=== PATIENT | female | born 1965 | race Caucasian/White ===

== ENCOUNTER 2018-05-08 10:45 | Outpatient (CLI) | payer BC ==
[~2018-05-08] VITALS: Ht 167.6 cm; Wt 95.3 kg
[~2018-05-08 10:45] MED LIST: BENA20TA72; FENO135C; SRTR100T
[2018-05-08] MEDS ORDERED: SERT25TA5 PO (10:58)
[2018-05-08] MEDS ORDERED: FENO160T12 PO (10:58)
[2018-05-08] MEDS ORDERED: HYDR25TA4 PO (10:58)
[2018-05-08] MEDS ORDERED: SERT100T8 PO (10:58)
[2018-05-08] MEDS ORDERED: OMEP20CA12 PO (10:58)
[2018-05-08] MEDS ORDERED: BENA20TA7 PO (10:58)
[2018-05-08] MEDS ORDERED: BUSP5TAB59 PO (10:58)
[2018-05-08] MEDS ORDERED: METF-397 PO (10:58)
== END 2018-05-08 11:01 | disposition home or self-care (01) ==
LOC: PREOP 10:45
PROVIDERS: ATTEND Surgery
DX: Z01.818 Encounter for other preprocedural examination (principal)

== ENCOUNTER 2018-05-11 10:58 | Day surgery (SDC) | payer BC ==
[~2018-05-11] VITALS: Ht 167.6 cm; Wt 95.3 kg
[~2018-05-11 10:58] MED LIST changes: +BENA20TA7 PO; +BUSP5TAB59 PO; +FENO160T12 PO; +HYDR25TA4 PO; +METF-397 PO; +OMEP20CA12 PO; +SERT100T8 PO; +SERT25TA5 PO
[2018-05-11] MEDS ORDERED: LACTATED RINGERS 1,000 ML IV ONE (11:11)
[2018-05-11] MEDS ORDERED: LACTATED RINGERS 1,000 ML IV STA (11:36)
[2018-05-11 11:41] VITALS: BP 121/66
[2018-05-11] MEDS ORDERED: HURRICAINE EXT TUBE (BENZOCAINE) XX PRN (11:45)
[2018-05-11] MEDS ORDERED: PROPOFOL INJECTION 50 ML IV ONE (12:30)
[2018-05-11] MEDS ORDERED: LIDOCAINE PF 2% 2 ML (XYLOCAINE) VIAL ONE (12:32)
--- NOTE | 2018-05-11 12:55 | Progress Note-Pre Operative ---
Pre-Operative Progress Note H&P Reviewed The H&P was reviewed, patient examined and no changes noted. Time Seen by Provider: 12:51 Date H&P Reviewed: May 11, 2018 Time H&P Reviewed: 12:52 Pre-Operative Diagnosis: Gastritis, Screening colonoscopy PAULO CEE DO May 11, 2018 12:55
[2018-05-11] MEDS ORDERED: proPOfol 200 MG/20 ML (DIPRIVAN) VIAL IV ONE (13:29)
--- NOTE | 2018-05-11 13:41 | Progress Note-Post Operative ---
Post-Operative Progess Note Surgeon (s)/Ship Pilot Dispatcher (s) Surgeon PAULO CEE DO Ship Pilot Dispatcher: RAMSEY SaxenaII Pre-Operative Diagnosis Gastritis, Screening colonoscopy Post-Operative Diagnosis Gastritis Cecal Polyp Diverticula Internal Hemorrhoids ??Proctitis Procedure & Operative Findings Date of Procedure 05/11/18 Procedure Performed/Findings EGD with bx Colon with snare Colon with bx Anesthesia Type IV Sedation by VERTICAL LATHE OPERATOR Estimated Blood Loss Estimated blood loss (mL): scant Specimens/Packing Specimens Removed Duodenal bx Antral bx Cecal polyp Rectal bx PAULO CEE DO May 11, 2018 13:40
--- NOTE | 2018-05-11 13:42 | Endoscopy Discharge Instruct ---
Endo Procedure/Findings Findings 1.: Gastritis 2.: Polyp 3.: Diverticulosis 4.: Internal Hemorrhoids Discharge Instructions - Activity: You might feel a little sleepy until tomorrow. This is due to the medicine you received to relax you. Until tomorrow, you should: NOT drive a car, operate machinery or power tools. NOT drink any alcoholic beverages. NOT make any important decisions or sign importortant papers. Do not return to work until tomorrow, unless otherwise instructed. Resume previous activities tomorrow. Diet: Start by taking liquids. If you tolerate liquids, advance to solid food. Make an appointment for one week. Notify Physician - If you experience excessive bleeding, unusual abdominal pain, fever, or chest pain, contact your doctor immediately. Follow-Up: - I have received and understand the above instructions and will call my doctor if I have any further questions. Patient Signature Date Nurse Signature Other (Relationship) PAULO CEE DO May 11, 2018 13:42
[2018-05-11 13:55] VITALS: BP 120/70
--- OUTSIDE RECORDS SUMMARY | 2018-05-11 14:05 | XMS REPORT ---
Author Author MARCUS MARA Organization [facility] Address [address] [place] [address] Care Team Providers Care Wire Machine Cutter Name Role Phone VELAZQUEZSUMAN ArceELE Unavailable PROBLEMS Type Condition ICD9-CM Code NCB09-ON Code Onset Dates Condition Status SNOMED Code Problem Other obesity due to excess calories E66.09 Active 856023831 Problem Pre-diabetes R73.03 Active 704203961 Problem Body mass index (BMI) of 34.0-34.9 in adult Z68.34 Active 129551061 Problem Mixed hyperlipidemia E78.2 Active 021848335 Problem Recurrent major depressive disorder, in full remission F33.42 Active 73126850 Problem Major depressive disorder, recurrent, moderate F33.1 Active 14732311 Problem Muscle spasms of both lower extremities M62.838 Active 28409739 Problem OAB (overactive bladder) N32.81 Active 368195907 Problem Essential hypertension I10 Active 20935142 Problem GERD without esophagitis K21.9 Active 327414788 ALLERGIES No Information ENCOUNTERS Encounter Location Date Diagnosis [facility] [id number] [place] [address] 73516- 6679 17 Apr, 2018 Pelvic pain R10.2 and Change in consistency of stool R19.5 [facility] [id number] [place] [address] 47382 -1180 Apr, Polyuria R35.8 ; Vaginal pain R10.2 ; Rash and nonspecific skin eruption R21 ; Pelvic pain R10.2 and Acute cystitis with hematuria N30.01 [facility] [address] [place] [address] 54475- 3136 Jan, Pre-diabetes R73.03 and Mixed hyperlipidemia E78.2 [facility] [id number] [place] [address] 63729- 9725 Jan, [facility] [id number] [place] [address] 80599- 0402 19 Jan, 2018 Recurrent major depressive disorder, in full remission F33.42 [facility] [id number] [place] [address] 52427- 4098 15 Jan, 2018 Essential hypertension I10 ; Mixed hyperlipidemia E78.2 ; GERD without esophagitis K21.9 ; OAB (overactive bladder) N32.81 ; Body mass index (BMI) of 34.0-34.9 in adult Z68.34 ; Pre-diabetes R73.03 and Recurrent major depressive disorder, in full remission F33.42 [facility] [id number] [place] [address] 96317- 7041 13 Nov, 2017 [place] [id number] [place] [address] 69265- 1012 Nov, Essential hypertension I10 [place] [id number] [place] [address] 24270- 9079 Nov, Essential hypertension I10 [facility] [id number] [place] [address] 40176- 4451 Oct, [place] [id number] [place] [address] 99126- 1473 Oct, Muscle spasms of both lower extremities M62.838 [place] [id number] [place] [address] 86991- 2600 Oct, Essential hypertension I10 ; Mixed hyperlipidemia E78.2 ; Pre-diabetes R73.03 and Other obesity due to excess calories E66.09 [facility] [id number] [place] [address] 67755- 7216 Oct, Mixed hyperlipidemia E78.2 [facility] [id number] [place] [address] 87889- 4695 Oct, Major depressive disorder, recurrent, moderate F33.1 [facility] [address] 23610- 5711 Oct, Essential hypertension I10 ; Mixed hyperlipidemia E78.2 ; Recurrent major depressive disorder, in full remission F33.42 ; GERD without esophagitis K21.9 ; OAB (overactive bladder) N32.81 ; Muscle spasms of both lower extremities M62.838 ; Acute suppurative otitis media of right ear without spontaneous rupture of tympanic membrane, recurrence not specified H66.001 ; Pre -diabetes R73.03 ; Other obesity due to excess calories E66.09 and Body mass index (BMI) of 34.0-34.9 in adult Z68.34 [facility] [address] [facility] [id number] [place] [address] Sep, IMMUNIZATIONS No Known Immunizations SOCIAL HISTORY Never Assessed REASON FOR VISIT New Refill Request PLAN OF CARE VITAL SIGNS MEDICATIONS Medication Instructions Dosage Frequency Start Date End Date Duration Status MetFORMIN HCl ER 500 mg Orally Once a day 1 tablet with evening meal 24h Oct, 30 days Active Fenofibrate 160 MG Orally Once a day 1 tablet with food 24h 30 days Active RESULTS No Results PROCEDURES No Known procedures INSTRUCTIONS MEDICATIONS ADMINISTERED No Known Medications MEDICAL (GENERAL) HISTORY Type Description Date Medical History Hyperlipidemia Medical History Hypertension Medical History Depression Medical History Anxiety Medical History Acid Reflux Medical History Recurrent major depressive disorder, in full remission Surgical History Total Hysterectomy 2008
--- OUTSIDE RECORDS SUMMARY | 2018-05-11 14:05 | XMS REPORT ---
Author Author MARCUS MARA Organization [facility] Address [address] [place] [address] Care Team Providers Care Oil Heaterman Name Role Phone VELAZQUEZSUMAN ArceELE Unavailable PROBLEMS Type Condition ICD9-CM Code [id number] Code Onset Dates Condition Status SNOMED Code Problem Other obesity due to excess calories E66.09 Active 828097226 Problem Pre-diabetes R73.03 Active 236313385 Problem Body mass index (BMI) of 34.0-34.9 in adult Z68.34 Active 582482058 Problem Mixed hyperlipidemia E78.2 Active 968799216 Problem Recurrent major depressive disorder, in full remission F33.42 Active 54969834 Problem Major depressive disorder, recurrent, moderate F33.1 Active 37010035 Problem Muscle spasms of both lower extremities M62.838 Active 48466327 Problem OAB (overactive bladder) N32.81 Active 284996573 Problem Essential hypertension I10 Active 89623327 Problem GERD without esophagitis K21.9 Active 305241930 ALLERGIES No Information ENCOUNTERS Encounter Location Date Diagnosis [facility] [address] [place] [address] 86235- 2556 17 Apr, 2018 Pelvic pain R10.2 and Change in consistency of stool R19.5 [facility] [address] [place] [address] 82048 -7127 Apr, Polyuria R35.8 ; Vaginal pain R10.2 ; Rash and nonspecific skin eruption R21 ; Pelvic pain R10.2 and Acute cystitis with hematuria N30.01 [facility] [address] [place] [address] 39351- 3881 Jan, Pre-diabetes R73.03 and Mixed hyperlipidemia E78.2 [facility] [id number] [place] [address] 73510- 2372 Jan, [facility] [id number] [place] [address] 96927- 7088 19 Jan, 2018 Recurrent major depressive disorder, in full remission F33.42 [facility] [id number] [place] [address] 62743- 7242 15 Jan, 2018 Essential hypertension I10 ; Mixed hyperlipidemia E78.2 ; GERD without esophagitis K21.9 ; OAB (overactive bladder) N32.81 ; Body mass index (BMI) of 34.0-34.9 in adult Z68.34 ; Pre-diabetes R73.03 and Recurrent major depressive disorder, in full remission F33.42 [facility] [id number] [place] [address] 26546- 6787 13 Nov, 2017 [place] [id number] [place] [address] 00526- 2910 Nov, Essential hypertension I10 [place] [id number] [place] [address] 61690- 6142 Nov, Essential hypertension I10 [facility] [id number] [place] [address] 87673- 0918 Oct, [place] [id number] [place] [address] 25630- 0070 Oct, Muscle spasms of both lower extremities M62.838 [place] [id number] [place] [address] 92242- 8397 Oct, Essential hypertension I10 ; Mixed hyperlipidemia E78.2 ; Pre-diabetes R73.03 and Other obesity due to excess calories E66.09 [facility] [id number] [place] [address] 96875- 9236 Oct, Mixed hyperlipidemia E78.2 [facility] [id number] [place] [address] 10892- 9487 Oct, Major depressive disorder, recurrent, moderate F33.1 [facility] [address] 38478- 4404 Oct, Essential hypertension I10 ; Mixed hyperlipidemia [...] index (BMI) of 34.0-34.9 in adult Z68.34 [facility] [address] [facility] [id number] [place] [address] Sep, IMMUNIZATIONS No Known Immunizations SOCIAL HISTORY Never Assessed REASON FOR VISIT New Refill Request PLAN OF CARE VITAL SIGNS MEDICATIONS Medication Instructions Dosage Frequency Start Date End Date Duration Status Sertraline HCl 100 mg Orally Once a day 1 tablet 24h 90 days Active Sertraline HCl 25 MG Orally Once a day 1 tablet 24h 90 days Active RESULTS No Results PROCEDURES No Known procedures INSTRUCTIONS MEDICATIONS ADMINISTERED No Known Medications MEDICAL (GENERAL) HISTORY Type Description Date Medical History Hyperlipidemia Medical History Hypertension Medical History Depression Medical History Anxiety Medical History Acid Reflux Medical History Recurrent major depressive disorder, in full remission Surgical History Total Hysterectomy 2008
--- OUTSIDE RECORDS SUMMARY | 2018-05-11 14:06 | XMS REPORT ---
Author Author MARA VELAZQUEZ Organization [facility] Address [address] [place] [address] Care Team Providers Care Distribution Estimator Name Role Phone VELAZQUEZSUMAN ArceELE Unavailable PROBLEMS Type Condition ICD9-CM Code [id number] Code Onset Dates Condition Status SNOMED Code Problem Other obesity due to excess calories E66.09 Active 984789888 Problem Pre-diabetes R73.03 Active 644048257 Problem Body mass index (BMI) of 34.0-34.9 in adult Z68.34 Active 988450746 Problem Mixed hyperlipidemia E78.2 Active 357073581 Problem Recurrent major depressive disorder, in full remission F33.42 Active 89848775 Problem Major depressive disorder, recurrent, moderate F33.1 Active 62975877 Problem Muscle spasms of both lower extremities M62.838 Active 46617076 Problem OAB (overactive bladder) N32.81 Active 439504747 Problem Essential hypertension I10 Active 81732999 Problem GERD without esophagitis K21.9 Active 230639357 ALLERGIES No Information ENCOUNTERS Encounter Location Date Diagnosis [place] [address] [place] [address] 71307- 3825 Jan, Pre-diabetes R73.03 and Mixed hyperlipidemia E78.2 [facility] [id number] [place] [address] 81125- 2749 Jan, [facility] [address] [place] [address] 18284- 2650 Jan, Recurrent major depressive disorder, in full remission F33.42 [facility] [id number] [place] [address] 07470- 9520 Jan, Essential hypertension I10 ; Mixed hyperlipidemia E78.2 ; GERD without esophagitis K21.9 ; OAB (overactive bladder) N32.81 ; Body mass index (BMI) of 34.0-34.9 in adult Z68.34 ; Pre-diabetes R73.03 and Recurrent major depressive disorder, in full remission F33.42 [place] [id number] [place], [place] [address]- [address]65 Nov, [place] [id number] [place] [address] 23663- 6347 Nov, Essential hypertension I10 [place] [id number] [place] [address] 521366- 4739 Nov, Essential hypertension I10 [place] [id number] [place] [address] 62665- 2861 Oct, [place] [id number] [place] [address] 16462- 8311 Oct, Muscle spasms of both lower extremities M62.838 [place] [id number] [place] [address] 6681 Oct, Essential hypertension I10 ; Mixed hyperlipidemia E78.2 ; Pre-diabetes R73.03 and Other obesity due to excess calories E66.09 [place] [id number] [place] [address] 07826- 7591 Oct, Mixed hyperlipidemia E78.2 [place] [id number] [place] [address] 39384- 8235 Oct, Major depressive disorder, recurrent, moderate F33.1 [place] [address] [place] [address] 29875- 1610 Oct, Essential hypertension I10 ; Mixed hyperlipidemia [...] index (BMI) of 34.0-34.9 in adult Z68.34 [facility] [address] [facility] [id number] [place] [address]- 3[address] Sep, IMMUNIZATIONS No Known Immunizations SOCIAL HISTORY Never Assessed REASON FOR VISIT lab results/new med PLAN OF CARE VITAL SIGNS MEDICATIONS Medication Instructions Dosage Frequency Start Date End Date Duration Status MetFORMIN HCl ER 500 mg Orally Once a day 1 tablet with evening meal 24h Oct, 90 days Active RESULTS No Results PROCEDURES No Known procedures INSTRUCTIONS MEDICATIONS ADMINISTERED No Known Medications MEDICAL (GENERAL) HISTORY Type Description Date Medical History Hyperlipidemia Medical History Hypertension Medical History Depression Medical History Anxiety Medical History Acid Reflux Medical History Recurrent major depressive disorder, in full remission Surgical History Total Hysterectomy 2008
--- OUTSIDE RECORDS SUMMARY | 2018-05-11 14:06 | XMS REPORT ---
Author Author VELAZQUEZMARA Arce Organization [facility] Address [address] [place] [address] Care Team Providers Care Dispatch Associate Name Role Phone VELAZQUEZSUMAN ArceELE Unavailable PROBLEMS Type Condition ICD9-CM Code GHJ16-YI Code Onset Dates Condition Status SNOMED Code Problem Other obesity due to excess calories E66.09 Active 377310640 Problem Pre-diabetes R73.03 Active 038489436 Problem Body mass index (BMI) of 34.0-34.9 in adult Z68.34 Active 010101098 Problem Mixed hyperlipidemia E78.2 Active 495761056 Problem Recurrent major depressive disorder, in full remission F33.42 Active 09893544 Problem Major depressive disorder, recurrent, moderate F33.1 Active 59463058 Problem Muscle spasms of both lower extremities M62.838 Active 67659446 Problem OAB (overactive bladder) N32.81 Active 868514448 Problem Essential hypertension I10 Active 81950831 Problem GERD without esophagitis K21.9 Active 355641671 ALLERGIES Substance Reaction Event Type Date Status Statins Unknown Non Drug Allergy Jan, Active ENCOUNTERS Encounter Location Date Diagnosis [facility] [id number] [place] [address] 42966- 2418 17 Apr, 2018 Pelvic pain R10.2 and Change in consistency of stool R19.5 [facility] [address] [place] [address] 94953 -2619 16 Apr, 2018 Polyuria R35.8 ; Vaginal pain R10.2 ; Rash and nonspecific skin eruption R21 ; Pelvic pain R10.2 and Acute cystitis with hematuria N30.01 [facility] [address] [address]- [address] 27 Jan, 2018 Pre-diabetes R73.03 and Mixed hyperlipidemia E78.2 [facility] [id number] [place] [address] 37277- 5015 19 Jan, 2018 [facility] [id number] [place] [address] 62873- 4507 19 Jan, 2018 Recurrent major depressive disorder, in full remission F33.42 [facility] [id number] [place] [address] 38921- 9545 15 Jan, 2018 Essential hypertension I10 ; Mixed hyperlipidemia E78.2 ; GERD without esophagitis K21.9 ; OAB (overactive bladder) N32.81 ; Body mass index (BMI) of 34.0-34.9 in adult Z68.34 ; Pre-diabetes R73.03 and Recurrent major depressive disorder, in full remission F33.42 [place] [id number] [place] [address] 69462- 9443 13 Nov, 2017 [place] [id number] [place] [address] 81639- 4273 Nov, Essential hypertension I10 [place] [id number] [place] [address] 92342- 6856 Nov, Essential hypertension I10 [place] [id number] [place] [address] 66991- 0561 Oct, [place] [id number] [place] [address] 17839- 8018 Oct, Muscle spasms of both lower extremities M62.838 [place] [id number] [place] [address] 74173- 5365 Oct, Essential hypertension I10 ; Mixed hyperlipidemia E78.2 ; Pre-diabetes R73.03 and Other obesity due to excess calories E66.09 [facility] [id number] [place] [address] 68459- 2607 Oct, Mixed hyperlipidemia E78.2 [facility] [id number] [place] [address] 57719- 5865 Oct, Major depressive disorder, recurrent, moderate F33.1 [facility] [id number] [place] [address]- 5464 Oct, Essential hypertension I10 ; Mixed hyperlipidemia [...] index (BMI) of 34.0-34.9 in adult Z68.34 [place] [address] [facility] [id number] [address] Sep, IMMUNIZATIONS No Known Immunizations SOCIAL HISTORY Never Assessed REASON FOR VISIT Hypertension-[facility] PLAN OF CARE Activity Details Follow Up 3 Months Reason:CHM/HTN VITAL SIGNS Height 66 in 2018-02-13 Weight 212.3 lbs 2018-02-13 Temperature 98.5 degrees Fahrenheit 2018-02-13 Heart Rate 88 bpm 2018-02-13 Respiratory Rate 20 2018-02-13 BMI 34.26 kg/m2 2018-02-13 Blood pressure systolic 134 mmHg 2018-02-13 Blood pressure diastolic 78 mmHg 2018-02-13 MEDICATIONS Medication Instructions Dosage Frequency Start Date End Date Duration Status MetFORMIN HCl ER 500 mg Orally Once a day 1 tablet with evening meal 24h Oct, Active Sertraline HCl 25 MG Orally Once a day 1 tablet 24h Active Fenofibrate 160 MG Orally Once a day 1 tablet with food 24h Active Sertraline HCl 100 MG Orally Once a day 1 tablet 24h Active Flaxseed Oil 1000 MG Active Hydrochlorothiazide 25 MG Orally Once a day 1 tablet in the morning 24h 90 days Active VESIcare 5 MG Orally Once a day 1 tablet 24h Active BusPIRone HCl 5 mg Orally 2 times a day 1 tablet 12h Active Benazepril HCl 20 mg Orally Once a day 1 tablet 24h 90 days Active Omeprazole Magnesium 20.6 (20 Base) MG Orally Once a day 1 capsule 24h Active Cyclobenzaprine HCl 10 mg Orally Three times a day 1 tablet as needed 8h Jan, 30 days Active RESULTS No Results PROCEDURES No Known procedures INSTRUCTIONS MEDICATIONS ADMINISTERED No Known Medications MEDICAL (GENERAL) HISTORY Type Description Date Medical History Hyperlipidemia Medical History Hypertension Medical History Depression Medical History Anxiety Medical History Acid Reflux Medical History Recurrent major depressive disorder, in full remission Surgical History Total Hysterectomy 2008
--- OUTSIDE RECORDS SUMMARY | 2018-05-11 14:06 | XMS REPORT ---
Author Author MARA VELAZQUEZ Organization [facility] Address [address] [place] [address] Care Team Providers Care Percher Name Role Phone VELAZQUEZSUMAN ArceELE Unavailable PROBLEMS Type Condition ICD9-CM Code PQW02-KP Code Onset Dates Condition Status SNOMED Code Problem Other obesity due to excess calories E66.09 Active 354011080 Problem Pre-diabetes R73.03 Active 671580766 Problem Body mass index (BMI) of 34.0-34.9 in adult Z68.34 Active 712626348 Problem Mixed hyperlipidemia E78.2 Active 093176998 Problem Recurrent major depressive disorder, in full remission F33.42 Active 23600848 Problem Major depressive disorder, recurrent, moderate F33.1 Active 61944986 Problem Muscle spasms of both lower extremities M62.838 Active 86400666 Problem OAB (overactive bladder) N32.81 Active 273634051 Problem Essential hypertension I10 Active 66117139 Problem GERD without esophagitis K21.9 Active 802715476 ALLERGIES No Information ENCOUNTERS Encounter Location Date Diagnosis [place] [address] [place] [address] 90840- 0449 Jan, Pre-diabetes R73.03 and Mixed hyperlipidemia E78.2 [facility] [address] [place] [id number] [place] [address] 63675- 1194 Jan, [facility] [address] [place] [address] 12071- 9031 Jan, Recurrent major depressive disorder, in full remission F33.42 [facility] [address] [place] [address] [id number] [place] [address] 61241- 4830 Jan, Essential hypertension I10 ; Mixed hyperlipidemia E78.2 ; GERD without esophagitis K21.9 ; OAB (overactive bladder) N32.81 ; Body mass index (BMI) of 34.0-34.9 in adult Z68.34 ; Pre-diabetes R73.03 and Recurrent major depressive disorder, in full remission F33.42 [place] [address] [place] [id number] [place] [address] Nov, [place] [address] [place] [id number] [place] [address] 34210- 8783 Nov, Essential hypertension I10 [place] [address] [place] [id number] [place] [address] 096014- 3541 Nov, Essential hypertension I10 [place] [address] [place] [id number] [place] [address] 89599- 2506 Oct, [place] [address] [place] [id number] [place] [address] 54593- 7514 Oct, Muscle spasms of both lower extremities M62.838 [place] [address] [place] [id number] [place] [address]- 7522 Oct, Essential hypertension I10 ; Mixed hyperlipidemia E78.2 ; Pre-diabetes R73.03 and Other obesity due to excess calories E66.09 [place] [address] [place] [id number] [place] [address] 56827- 1970 Oct, Mixed hyperlipidemia E78.2 [place] [address] [place] [id number] [place] [address] 32815- 4655 Oct, Major depressive disorder, recurrent, moderate F33.1 [place] [address] [place] [address] 13922- 2006 Oct, Essential hypertension I10 ; Mixed hyperlipidemia [...] (BMI) of 34.0-34.9 in adult Z68.34 [facility] [address] [facility] [id number] [place] [address] Sep, IMMUNIZATIONS No Known Immunizations SOCIAL HISTORY Never Assessed REASON FOR VISIT Refill request PLAN OF CARE VITAL SIGNS MEDICATIONS Medication Instructions Dosage Frequency Start Date End Date Duration Status Benazepril HCl 20 mg Orally Once a [...]
--- OUTSIDE RECORDS SUMMARY | 2018-05-11 14:06 | XMS REPORT ---
Author Author MARCUS MARA Organization [facility] Address [address] [place] [address] Care Team Providers Care Professor Of Nursing Name Role Phone VELAZQUEZSUMAN ArceELE Unavailable PROBLEMS Type Condition ICD9-CM Code BWD26-AO Code Onset Dates Condition Status SNOMED Code Problem Other obesity due to excess calories E66.09 Active 656369376 Problem Pre-diabetes R73.03 Active 964363985 Problem Body mass index (BMI) of 34.0-34.9 in adult Z68.34 Active 260998920 Problem Mixed hyperlipidemia E78.2 Active 511755269 Problem Recurrent major depressive disorder, in full remission F33.42 Active 99163009 Problem Major depressive disorder, recurrent, moderate F33.1 Active 49789260 Problem Muscle spasms of both lower extremities M62.838 Active 98600922 Problem OAB (overactive bladder) N32.81 Active 629471181 Problem Essential hypertension I10 Active 59080094 Problem GERD without esophagitis K21.9 Active 698941262 ALLERGIES No Information ENCOUNTERS Encounter Location Date Diagnosis [facility] [address] [place] [address] 74052- 8936 17 Apr, 2018 Pelvic pain R10.2 and Change in consistency of stool R19.5 [facility] [address] [place] [address] 46631 -5049 Apr, Polyuria R35.8 ; Vaginal pain R10.2 ; Rash and nonspecific skin eruption R21 ; Pelvic pain R10.2 and Acute cystitis with hematuria N30.01 [facility] [address] [place] [address] 74423- 8948 Jan, Pre-diabetes R73.03 and Mixed hyperlipidemia E78.2 [facility] [address] [id number] [place] [address] 93913- 2449 Jan, [facility] [address] [id number] [place] [address] 50750- 3504 19 Jan, 2018 Recurrent major depressive disorder, in full remission F33.42 [facility] [address] [id number] [place] [address] 54426- 5894 15 Jan, 2018 Essential hypertension I10 ; Mixed hyperlipidemia E78.2 ; GERD without esophagitis K21.9 ; OAB (overactive bladder) N32.81 ; Body mass index (BMI) of 34.0-34.9 in adult Z68.34 ; Pre-diabetes R73.03 and Recurrent major depressive disorder, in full remission F33.42 [facility] [address] [place] [id number] [place] [address] 68660- 6238 13 Nov, 2017 [place] [address] [place] [id number] [place] [address] 84894- 2377 Nov, Essential hypertension I10 [place] [address] [place] [id number] [place] [address] 15360- 1293 Nov, Essential hypertension I10 [facility] [address] [place] [id number] [place] [address] 07051- 9310 Oct, [place] [address] [place] [id number] [place] [address] 62003- 1492 Oct, Muscle spasms of both lower extremities M62.838 [place] [address] [place] [id number] [place] [address] 39299- 9382 Oct, Essential hypertension I10 ; Mixed hyperlipidemia E78.2 ; Pre-diabetes R73.03 and Other obesity due to excess calories E66.09 [facility] [address] [place] [id number] [place] [address] 63947- 5240 Oct, Mixed hyperlipidemia E78.2 [facility] [address] [place] [id number] [place] [address] 01834- 6089 Oct, Major depressive disorder, recurrent, moderate F33.1 [facility] [address] 30523- 8205 Oct, Essential hypertension I10 ; Mixed hyperlipidemia [...] index (BMI) of 34.0-34.9 in adult Z68.34 [facility] [address] [facility] [id number] [place] [address]- 7[address] Sep, IMMUNIZATIONS No Known Immunizations SOCIAL HISTORY Never Assessed REASON FOR VISIT Cancel Appointment Request PLAN OF CARE VITAL SIGNS MEDICATIONS No Known Medications RESULTS No Results PROCEDURES No Known procedures INSTRUCTIONS MEDICATIONS ADMINISTERED No Known Medications MEDICAL (GENERAL) HISTORY Type Description Date Medical History Hyperlipidemia Medical History Hypertension Medical History Depression Medical History Anxiety Medical History Acid Reflux Medical History Recurrent major depressive disorder, in full remission Surgical History Total Hysterectomy 2008
--- OUTSIDE RECORDS SUMMARY | 2018-05-11 14:06 | XMS REPORT ---
Author Author ELA MONTES [facility] Address [address] [place] [address] Care Team Providers Care Associate Director Of Nursing Name Role Phone ELA MONTES Unavailable PROBLEMS Type Condition ICD9-CM Code HTA19-VG Code Onset Dates Condition Status SNOMED Code Problem Other obesity due to excess calories E66.09 Active 638000813 Problem Pre-diabetes R73.03 Active 275390023 Problem Body mass index (BMI) of 34.0-34.9 in adult Z68.34 Active 981204692 Problem Mixed hyperlipidemia E78.2 Active 571649706 Problem Recurrent major depressive disorder, in full remission F33.42 Active 92096985 Problem Major depressive disorder, recurrent, moderate F33.1 Active 45381650 Problem Muscle spasms of both lower extremities M62.838 Active 03230820 Problem OAB (overactive bladder) N32.81 Active 554585928 Problem Essential hypertension I10 Active 56335597 Problem GERD without esophagitis K21.9 Active 623704082 ALLERGIES Substance Reaction Event Type Date Status Statins Unknown Non Drug Allergy Oct, Active ENCOUNTERS Encounter Location Date Diagnosis [place] [address] [place] [id number] [place] [address] 04815- 9380 Jan, Pre-diabetes R73.03 and Mixed hyperlipidemia E78.2 [facility] [id number] [place] [address] 86101- 5438 Jan, [place] [id number] [place] [address] 06600- 7269 Jan, Recurrent major depressive disorder, in full remission F33.42 [facility] [address] [place] [address] [id number] [place] [address] 59781- 4961 Jan, Essential hypertension I10 ; Mixed hyperlipidemia E78.2 ; GERD without esophagitis K21.9 ; OAB (overactive bladder) N32.81 ; Body mass index (BMI) of 34.0-34.9 in adult Z68.34 ; Pre-diabetes R73.03 and Recurrent major depressive disorder, in full remission F33.42 [place] [address] [place] [id number] [place] [address] 94520- 8175 Nov, [place] [address] 806929- 4818 Nov, Essential hypertension I10 [place] [address] 29112- 5218 Nov, Essential hypertension I10 [place] [address] 54173- 5412 Oct, [place] [address] 46152- 4976 Oct, Muscle spasms of both lower extremities M62.838 [place] [address] [place] [id number] [place] [address] 23771- 1136 Oct, Essential hypertension I10 ; Mixed hyperlipidemia E78.2 ; Pre-diabetes R73.03 and Other obesity due to excess calories E66.09 [place] [address] [place] [address] [id number] [place] [address] 87784- 9067 Oct, Mixed hyperlipidemia E78.2 [place] [address] [place] [id number] [place] [address] 47260- 4618 Oct, Major depressive disorder, recurrent, moderate F33.1 [place] [address] [place] [id number] [place] [address] 37013- 4467 Oct, Essential hypertension I10 ; Mixed hyperlipidemia [...] index (BMI) of 34.0-34.9 in adult Z68.34 [facility] [address] [facility] [id number] [place] [address]- [address] Sep, IMMUNIZATIONS No Known Immunizations SOCIAL HISTORY Never Assessed REASON FOR VISIT [facility] - coming from [facility] PLAN OF CARE Activity Details Follow Up None. Reason: VITAL SIGNS MEDICATIONS Medication Instructions Dosage Frequency Start Date End Date Duration Status Cyclobenzaprine HCl 10 MG Orally Three times a day 1 tablet as needed 8h Active Sertraline HCl 100 MG Orally Once a day 1 tablet 24h Active VESIcare 5 MG Orally Once a day 1 tablet 24h Active Hydrochlorothiazide 12.5 MG Orally Once a day 1 tablet in the morning 24h Active Omeprazole Magnesium 20.6 (20 Base) MG Orally Once a day 1 capsule 24h Active BusPIRone HCl 5 mg Orally 2 times a day 1 tablet 12h 90 days Active Amoxicillin 500 mg Orally every 12 hrs 1 capsule 12h Oct, Nov, 10 days Active Fenofibrate 160 MG Orally Once a day 1 tablet with food 24h Active Flaxseed Oil 1000 MG Active Benazepril HCl 20 MG Orally Once a day 1 tablet 24h Active RESULTS No Results PROCEDURES Procedure Date Ordered Result Body Site Psych diagnostic evaluation, established patient November 20, 2017 INSTRUCTIONS MEDICATIONS ADMINISTERED No Known Medications MEDICAL (GENERAL) HISTORY Type Description Date Medical History Hyperlipidemia Medical History Hypertension Medical History Depression Medical History Anxiety Medical History Acid Reflux Medical History Recurrent major depressive disorder, in full remission Surgical History Total Hysterectomy 2008
--- OUTSIDE RECORDS SUMMARY | 2018-05-11 14:06 | XMS REPORT ---
Author Author MARA VELAZQUEZ Organization [facility] Address [address] [place] [address] Care Team Providers Care Oncology Social Work Name Role Phone VELAZQUEZSUMAN ArceELE Unavailable PROBLEMS Type Condition ICD9-CM Code BWV91-RF Code Onset Dates Condition Status SNOMED Code Problem Other obesity due to excess calories E66.09 Active 034268305 Problem Pre-diabetes R73.03 Active 800610769 Problem Body mass index (BMI) of 34.0-34.9 in adult Z68.34 Active 671006801 Problem Mixed hyperlipidemia E78.2 Active 983576399 Problem Recurrent major depressive disorder, in full remission F33.42 Active 21219775 Problem Major depressive disorder, recurrent, moderate F33.1 Active 43541811 Problem Muscle spasms of both lower extremities M62.838 Active 50506759 Problem OAB (overactive bladder) N32.81 Active 868540802 Problem Essential hypertension I10 Active 33992370 Problem GERD without esophagitis K21.9 Active 193818906 ALLERGIES No Information ENCOUNTERS Encounter Location Date Diagnosis [place] [address] [place] [address] 05367- 1976 Jan, Pre-diabetes R73.03 and Mixed hyperlipidemia E78.2 [facility] [address] [place] [id number] [place] [address] 96512- 3541 Jan, [facility] [address] [place] [address] 70569- 6106 Jan, Recurrent major depressive disorder, in full remission F33.42 [facility] [address] [place] [id number] [place] [address] 35713- 1950 Jan, Essential hypertension I10 ; Mixed hyperlipidemia E78.2 ; GERD without esophagitis K21.9 ; OAB (overactive bladder) N32.81 ; Body mass index (BMI) of 34.0-34.9 in adult Z68.34 ; Pre-diabetes R73.03 and Recurrent major depressive disorder, in full remission F33.42 [place] [address] [place] [id number] [place] [address]- 5299 Nov, [place] [address] [place] [id number] [place] [address] 00984- 3741 Nov, Essential hypertension I10 [place] [address] [place] [id number] [place] [address] 089965- 9877 Nov, Essential hypertension I10 [place] [address] [place] [id number] [place] [address] 84614- 1956 Oct, [place] [address] [place] [id number] [place] [address] 06890- 1101 Oct, Muscle spasms of both lower extremities M62.838 [place] [address] [place] [id number] [place] [address]- 8919 Oct, Essential hypertension I10 ; Mixed hyperlipidemia E78.2 ; Pre-diabetes R73.03 and Other obesity due to excess calories E66.09 [place] [address] [place] [id number] [place] [address] 44918- 9009 Oct, Mixed hyperlipidemia E78.2 [place] [address] [place] [id number] [place] [address] 66551- 8313 Oct, Major depressive disorder, recurrent, moderate F33.1 [place] [address] [place] [address] 12482- 0619 Oct, Essential hypertension I10 ; Mixed hyperlipidemia [...] index (BMI) of 34.0-34.9 in adult Z68.34 [facility] [address] [facility] [place] [id number] [place] [address]- [address] Sep, IMMUNIZATIONS No Known Immunizations SOCIAL HISTORY Never Assessed REASON FOR VISIT refill request PLAN OF CARE VITAL SIGNS MEDICATIONS Medication Instructions Dosage Frequency Start Date End Date Duration Status Hydrochlorothiazide 12.5 MG Orally Once a day 1 tablet in the morning 24h 30 days Active RESULTS No Results PROCEDURES No Known procedures INSTRUCTIONS MEDICATIONS ADMINISTERED No Known Medications MEDICAL (GENERAL) HISTORY Type Description Date Medical History Hyperlipidemia Medical History Hypertension Medical History Depression Medical History Anxiety Medical History Acid Reflux Medical History Recurrent major depressive disorder, in full remission Surgical History Total Hysterectomy 2008
--- OUTSIDE RECORDS SUMMARY | 2018-05-11 14:06 | XMS REPORT ---
Author Author MARA VELAZQUEZ Organization [facility] Address [address] [place] [address] Care Team Providers Care Construction Checker Name Role Phone VELAZQUEZSUMAN ArceELE Unavailable PROBLEMS Type Condition ICD9-CM Code UCM01-OB Code Onset Dates Condition Status SNOMED Code Problem Other obesity due to excess calories E66.09 Active 339100004 Problem Pre-diabetes R73.03 Active 727787379 Problem Body mass index (BMI) of 34.0-34.9 in adult Z68.34 Active 436360717 Problem Mixed hyperlipidemia E78.2 Active 598296370 Problem Recurrent major depressive disorder, in full remission F33.42 Active 50651459 Problem Major depressive disorder, recurrent, moderate F33.1 Active 49766284 Problem Muscle spasms of both lower extremities M62.838 Active 28001505 Problem OAB (overactive bladder) N32.81 Active 120405960 Problem Essential hypertension I10 Active 19922111 Problem GERD without esophagitis K21.9 Active 283908529 ALLERGIES No Information ENCOUNTERS Encounter Location Date Diagnosis [place] [address] [place] [address] 54358- 8420 Jan, Pre-diabetes R73.03 and Mixed hyperlipidemia E78.2 [facility] [address] [place] [id number] [place] [address] 30106- 0179 Jan, [facility] [address] [place] [address] 63884- 5706 Jan, Recurrent major depressive disorder, in full remission F33.42 [facility] [address] [id number] [place] [address] 57660- 9742 Jan, Essential hypertension I10 ; Mixed hyperlipidemia E78.2 ; GERD without esophagitis K21.9 ; OAB (overactive bladder) N32.81 ; Body mass index (BMI) of 34.0-34.9 in adult Z68.34 ; Pre-diabetes R73.03 and Recurrent major depressive disorder, in full remission F33.42 [place] [address] [place] [id number] [place] [phone]- 2030 Nov, [place] [address] [place] [id number] [place] [address] 34795- 7703 Nov, Essential hypertension I10 [place] [address] [place] [id number] [place] [address] 653870- 9959 Nov, Essential hypertension I10 [place] [address] [place] [id number] [place] [address] 08042- 9071 Oct, [place] [address] [place] [id number] [place] [address] 76498- 0663 Oct, Muscle spasms of both lower extremities M62.838 [place] [address] [place] [address] [id number] [place] [address]- 0897 Oct, Essential hypertension I10 ; Mixed hyperlipidemia E78.2 ; Pre-diabetes R73.03 and Other obesity due to excess calories E66.09 [place] [address] [place] [id number] [place] [address] 99972- 0339 Oct, Mixed hyperlipidemia E78.2 [place] [address] [place] [id number] [place] [address] 35121- 3897 Oct, Major depressive disorder, recurrent, moderate F33.1 [place] [address] [place] [address] 61714- 6586 Oct, Essential hypertension I10 ; Mixed hyperlipidemia [...] index (BMI) of 34.0-34.9 in adult Z68.34 [facility] [address] [facility] [id number] [place] [address]- 5[address] Sep, IMMUNIZATIONS No Known Immunizations SOCIAL HISTORY Never Assessed REASON FOR VISIT Medication refill request PLAN OF CARE VITAL SIGNS MEDICATIONS Medication Instructions Dosage Frequency Start Date End Date Duration Status Cyclobenzaprine HCl 10 mg Orally Three times [...]
--- OUTSIDE RECORDS SUMMARY | 2018-05-11 14:06 | XMS REPORT ---
Author Author MARA VELAZQUEZ Organization [facility] Address [address] [place] [address] Care Team Providers Care Career Representative Name Role Phone VELAZQUEZSUMAN ArceELE Unavailable PROBLEMS Type Condition ICD9-CM Code ELW09-LC Code Onset Dates Condition Status SNOMED Code Problem Other obesity due to excess calories E66.09 Active 403847883 Problem Pre-diabetes R73.03 Active 959128118 Problem Body mass index (BMI) of 34.0-34.9 in adult Z68.34 Active 820756692 Problem Mixed hyperlipidemia E78.2 Active 710249667 Problem Recurrent major depressive disorder, in full remission F33.42 Active 60277543 Problem Major depressive disorder, recurrent, moderate F33.1 Active 08081533 Problem Muscle spasms of both lower extremities M62.838 Active 77325814 Problem OAB (overactive bladder) N32.81 Active 189826939 Problem Essential hypertension I10 Active 98994907 Problem GERD without esophagitis K21.9 Active 760133706 ALLERGIES No Information ENCOUNTERS Encounter Location Date Diagnosis [place] [address] [place] [address] 83328- 8385 Jan, Pre-diabetes R73.03 and Mixed hyperlipidemia E78.2 [facility] [address] [place] [id number] [place] [address] 65393- 4469 Jan, [facility] [address] [place] [address] 90471- 8444 Jan, Recurrent major depressive disorder, in full remission F33.42 [facility] [address] [place] [address] [id number] [place] [address] 89563- 1779 Jan, Essential hypertension I10 ; Mixed hyperlipidemia E78.2 ; GERD without esophagitis K21.9 ; OAB (overactive bladder) N32.81 ; Body mass index (BMI) of 34.0-34.9 in adult Z68.34 ; Pre-diabetes R73.03 and Recurrent major depressive disorder, in full remission F33.42 [place] [address] [place] [id number] [place] [address]- 0700 Nov, [place] [address] [place] [id number] [place] [address] 18890- 7925 Nov, Essential hypertension I10 [place] [address] [place] [address] [address] [place] [address] 439869- 2277 Nov, Essential hypertension I10 [place] [address] [place] [address] [id number] [place] [address] 29846- 2527 Oct, [place] [address] [place] [id number] [place] [address] 06338- 8376 Oct, Muscle spasms of both lower extremities M62.838 [place] [address] [place] [address] [address] [place] [address]- 5014 Oct, Essential hypertension I10 ; Mixed hyperlipidemia E78.2 ; Pre-diabetes R73.03 and Other obesity due to excess calories E66.09 [place] [address] [place] [address] [address] [place] [address] 21065- 7286 Oct, Mixed hyperlipidemia E78.2 [place] [address] [place] [address] [id number] [place] [address] 08917- 1963 Oct, Major depressive disorder, recurrent, moderate F33.1 [place] [address] [place] [address] 85847- 4509 Oct, Essential hypertension I10 ; Mixed hyperlipidemia [...] index (BMI) of 34.0-34.9 in adult Z68.34 [facility] [address] [facility] [id number] [place] [address]- 8102 Sep, IMMUNIZATIONS No Known Immunizations SOCIAL HISTORY Never Assessed REASON FOR VISIT Benazepril Prior Authorization PLAN OF CARE VITAL SIGNS MEDICATIONS Unknown Medications RESULTS No Results PROCEDURES No Known procedures INSTRUCTIONS MEDICATIONS ADMINISTERED No Known Medications MEDICAL (GENERAL) HISTORY Type Description Date Medical History Hyperlipidemia Medical History Hypertension Medical History Depression Medical History Anxiety Medical History Acid Reflux Medical History Recurrent major depressive disorder, in full remission Surgical History Total Hysterectomy 2008
--- OUTSIDE RECORDS SUMMARY | 2018-05-11 14:07 | XMS REPORT ---
Author Author MARA VELAZQUEZ Organization [facility] Address [address] [place] [address] Care Team Providers Care Boiler Operator Helper Name Role Phone VELAZQUEZSUMAN ArceELE Unavailable PROBLEMS Type Condition ICD9-CM Code UWA04-HD Code Onset Dates Condition Status SNOMED Code Problem Other obesity due to excess calories E66.09 Active 867504365 Problem Pre-diabetes R73.03 Active 192701517 Problem Body mass index (BMI) of 34.0-34.9 in adult Z68.34 Active 857632628 Problem Mixed hyperlipidemia E78.2 Active 170926468 Problem Recurrent major depressive disorder, in full remission F33.42 Active 54900925 Problem Major depressive disorder, recurrent, moderate F33.1 Active 01614993 Problem Muscle spasms of both lower extremities M62.838 Active 94757598 Problem OAB (overactive bladder) N32.81 Active 573705570 Problem Essential hypertension I10 Active 54844255 Problem GERD without esophagitis K21.9 Active 257570898 ALLERGIES No Information ENCOUNTERS Encounter Location Date Diagnosis [place] [id number] [place] [address] 48677- 8588 Jan, Pre-diabetes R73.03 and Mixed hyperlipidemia E78.2 [facility] [address] [place] [id number] [place] [address] 85242- 1989 Jan, [facility] [address] [place] [address] 09689- 5263 Jan, Recurrent major depressive disorder, in full remission F33.42 [facility] [address] [place] [id number] [place] [address] 77605- 3284 Jan, Essential hypertension I10 ; Mixed hyperlipidemia E78.2 ; GERD without esophagitis K21.9 ; OAB (overactive bladder) N32.81 ; Body mass index (BMI) of 34.0-34.9 in adult Z68.34 ; Pre-diabetes R73.03 and Recurrent major depressive disorder, in full remission F33.42 [place] [address] [place] [id number] [place] [phone] Nov, [place] [address] [place] [id number] [place] [address] 45647- 9094 Nov, Essential hypertension I10 [place] [address] [place] [id number] [place] [address] 525088- 8827 Nov, Essential hypertension I10 [place] [address] [place] [id number] [place] [address] 36216- 3660 Oct, [place] [address] [place] [id number] [place] [address] 47248- 2113 Oct, Muscle spasms of both lower extremities M62.838 [place] [address] [place] [id number] [place] [phone] Oct, Essential hypertension I10 ; Mixed hyperlipidemia E78.2 ; Pre-diabetes R73.03 and Other obesity due to excess calories E66.09 [place] [address] [place] [id number] [place] [address] 13332- 1928 Oct, Mixed hyperlipidemia E78.2 [place] [address] [place] [id number] [place] [address] 24746- 7391 Oct, Major depressive disorder, recurrent, moderate F33.1 [place] [address] [place] [address] 93596- 5459 Oct, Essential hypertension I10 ; Mixed hyperlipidemia [...] Z68.34 [facility] [address] [facility] [id number] [place] [address] Sep, IMMUNIZATIONS No Known Immunizations SOCIAL HISTORY Never Assessed REASON FOR VISIT medication refill PLAN OF CARE VITAL SIGNS MEDICATIONS Medication Instructions Dosage Frequency Start Date End Date Duration Status Fenofibrate 160 MG Orally Once a day [...]
--- OUTSIDE RECORDS SUMMARY | 2018-05-11 14:07 | XMS REPORT ---
Author Author CAESAR BECKER [facility] Address [address] [place] [address] Care Team Providers Care Librarian Helper Name Role Phone CASEAR BECKER Unavailable PROBLEMS Type Condition ICD9-CM Code CIH39-JG Code Onset Dates Condition Status SNOMED Code Problem Other obesity due to excess calories E66.09 Active 484272738 Problem Pre-diabetes R73.03 Active 226742497 Problem Body mass index (BMI) of 34.0-34.9 in adult Z68.34 Active 837067018 Problem Mixed hyperlipidemia E78.2 Active 352316313 Problem Recurrent major depressive disorder, in full remission F33.42 Active 92076742 Problem Major depressive disorder, recurrent, moderate F33.1 Active 34304622 Problem Muscle spasms of both lower extremities M62.838 Active 05064984 Problem OAB (overactive bladder) N32.81 Active 275567740 Problem Essential hypertension I10 Active 81052223 Problem GERD without esophagitis K21.9 Active 877179508 ALLERGIES No Information ENCOUNTERS Encounter Location Date Diagnosis [place] [id number] [place] [address] 12959- 4625 Mar, [facility] [address] [place] [id number] [place] [address] 15134- 5894 Jan, Pre-diabetes R73.03 and Mixed hyperlipidemia E78.2 [facility] [address] [place] [address] 31369- 4878 Jan, [facility] [address] [place] [id number] [place] [address] 06469- 9240 Jan, Recurrent major depressive disorder, in full remission F33.42 [facility] [address] [place] [id number] [place] [address] 54125- 4883 15 Jan, 2018 Essential hypertension I10 ; Mixed hyperlipidemia E78.2 ; GERD without esophagitis K21.9 ; OAB (overactive bladder) N32.81 ; Body mass index (BMI) of 34.0-34.9 in adult Z68.34 ; Pre-diabetes R73.03 and Recurrent major depressive disorder, in full remission F33.42 [place] [address] [place] [id number] [place] [address] 42508- 6787 Nov, [place] [address] 41866- 4660 Nov, Essential hypertension I10 [place] [address] 59881- 0012 Nov, Essential hypertension I10 [place] [address] [place] [id number] [place] [address] 08092- 5639 Oct, [place] [address] 76057- 9215 Oct, Muscle spasms of both lower extremities M62.838 [place] [address] [place] [id number] [place] [address] 70217- 0020 Oct, Essential hypertension I10 ; Mixed hyperlipidemia E78.2 ; Pre-diabetes R73.03 and Other obesity due to excess calories E66.09 [place] [address] [place] [id number] [place] [address] 39361- 8886 Oct, Mixed hyperlipidemia E78.2 [place] [address] [place] [id number] [place] [address] 07866- 7934 Oct, Major depressive disorder, recurrent, moderate F33.1 [place] [address] [place] [id number] [place] [address] 24301- 7421 Oct, Essential hypertension I10 ; Mixed hyperlipidemia [...] Z68.34 [facility] [address] [facility] [id number] [place] [address] Sep, IMMUNIZATIONS No Known Immunizations SOCIAL HISTORY Never Assessed REASON FOR VISIT Requesting to transfer from Dr. Nino PLAN OF CARE VITAL SIGNS MEDICATIONS Unknown [...]
--- OUTSIDE RECORDS SUMMARY | 2018-05-11 14:07 | XMS REPORT ---
Author Author MARA VELAZQUEZ Organization [facility] Address [address] [place] [address] Care Team Providers Care Hemodialysis Charge Nurse Name Role Phone VELAZQUEZSUMAN ArceELE Unavailable PROBLEMS Type Condition ICD9-CM Code [id number]-HV Code Onset Dates Condition Status SNOMED Code Problem Other obesity due to excess calories E66.09 Active 519757839 Problem Pre-diabetes R73.03 Active 387034275 Problem Body mass index (BMI) of 34.0-34.9 in adult Z68.34 Active 947746141 Problem Mixed hyperlipidemia E78.2 Active 859162899 Problem Recurrent major depressive disorder, in full remission F33.42 Active 59708379 Problem Major depressive disorder, recurrent, moderate F33.1 Active 24140049 Problem Muscle spasms of both lower extremities M62.838 Active 39852973 Problem OAB (overactive bladder) N32.81 Active 114818038 Problem Essential hypertension I10 Active 89915955 Problem GERD without esophagitis K21.9 Active 363638638 ALLERGIES No Information ENCOUNTERS Encounter Location Date Diagnosis [place] [address] [place] [address] 66919- 5438 Jan, Pre-diabetes R73.03 and Mixed hyperlipidemia E78.2 [facility] [address] [place] [id number] [place] [address] 59428- 2406 Jan, [facility] [address] [place] [address] 59536- 6773 Jan, Recurrent major depressive disorder, in full remission F33.42 [facility] [address] [place] [id number] [place] [address] 95785- 3463 Jan, Essential hypertension I10 ; Mixed hyperlipidemia E78.2 ; GERD without esophagitis K21.9 ; OAB (overactive bladder) N32.81 ; Body mass index (BMI) of 34.0-34.9 in adult Z68.34 ; Pre-diabetes R73.03 and Recurrent major depressive disorder, in full remission F33.42 [place] [address] [place] [id number] [place] [phone] Nov, [place] [address] [place] [id number] [place] [address] 36725- 3955 Nov, Essential hypertension I10 [place] [address] [place] [id number] [place] [address] 233855- 6965 Nov, Essential hypertension I10 [place] [address] [place] [id number] [place] [address] 97816- 7935 Oct, [place] [address] [place] [id number] [place] [address] 42656- 6397 Oct, Muscle spasms of both lower extremities M62.838 [place] [address] [place] [id number] [place] [phone]343 Oct, Essential hypertension I10 ; Mixed hyperlipidemia E78.2 ; Pre-diabetes R73.03 and Other obesity due to excess calories E66.09 [place] [address] [place] [id number] [place] [address] 97729- 7721 Oct, Mixed hyperlipidemia E78.2 [place] [address] [place] [id number] [place] [address] 39622- 0202 Oct, Major depressive disorder, recurrent, moderate F33.1 [place] [address] [place] [address] 15831- 4290 Oct, Essential hypertension I10 ; Mixed hyperlipidemia [...] index (BMI) of 34.0-34.9 in adult Z68.34 [facility] [address] [facility] [id number] [place] [address]- [address] Sep, IMMUNIZATIONS No Known Immunizations SOCIAL HISTORY Never Assessed REASON FOR VISIT Lab (walk-in) PLAN OF CARE VITAL SIGNS MEDICATIONS Unknown Medications RESULTS No Results PROCEDURES Procedure Date Ordered Result Body Site LIPID PANEL November 25, 2017 COMPREHEN METABOLIC PANEL November 25, 2017 ASSAY THYROID STIM HORMONE November 25, 2017 COMPLETE CBC W/AUTO DIFF WBC November 25, 2017 Hemoglobin Test Send Out 0 dollar November 25, 2017 INSTRUCTIONS MEDICATIONS ADMINISTERED No Known Medications MEDICAL (GENERAL) HISTORY Type Description Date Medical History Hyperlipidemia Medical History Hypertension Medical History Depression Medical History Anxiety Medical History Acid Reflux Medical History Recurrent major depressive disorder, in full remission Surgical History Total Hysterectomy 2008
--- OUTSIDE RECORDS SUMMARY | 2018-05-11 14:07 | XMS REPORT ---
Author Author MARCUSSUMANMARA Organization [facility] Address [address] [place] [address] Care Team Providers Care Last Pattern Grader Name Role Phone VELAZQUEZMARA Arce Unavailable PROBLEMS Type Condition ICD9-CM Code HKI46-TA Code Onset Dates Condition Status SNOMED Code Problem Other obesity due to excess calories E66.09 Active 969856597 Problem Pre-diabetes R73.03 Active 947550256 Problem Body mass index (BMI) of 34.0-34.9 in adult Z68.34 Active 917807797 Problem Mixed hyperlipidemia E78.2 Active 304910482 Problem Recurrent major depressive disorder, in full remission F33.42 Active 15860038 Problem Major depressive disorder, recurrent, moderate F33.1 Active 04682051 Problem Muscle spasms of both lower extremities M62.838 Active 26478420 Problem OAB (overactive bladder) N32.81 Active 652191823 Problem Essential hypertension I10 Active 72414394 Problem GERD without esophagitis K21.9 Active 954005572 ALLERGIES Substance Reaction Event Type Date Status Statins Unknown Non Drug Allergy Oct, Active ENCOUNTERS Encounter Location Date Diagnosis [facility] [address] [place] [address] 49585- 0484 Jan, Pre-diabetes R73.03 and Mixed hyperlipidemia E78.2 [facility] [address] [place] [address] 91706- 8226 Jan, [facility] [address] [place] [id number] [place] [address] 25409- 7268 Jan, Recurrent major depressive disorder, in full remission F33.42 [facility] [address] [place] [address] 45906- 0382 15 Jan, 2018 Essential hypertension I10 ; Mixed hyperlipidemia E78.2 ; GERD without esophagitis K21.9 ; OAB (overactive bladder) N32.81 ; Body mass index (BMI) of 34.0-34.9 in adult Z68.34 ; Pre-diabetes R73.03 and Recurrent major depressive disorder, in full remission F33.42 [place] [address] [place] [id number] [place] [address] 20740- 2262 Nov, [place] [address] [place] [id number] [place] [address] 99978- 7093 Nov, Essential hypertension I10 [place] [address] 17700- 2958 Nov, Essential hypertension I10 [place] [address] 96158- 9589 Oct, [place] [address] [place] [id number] [place] [address] 50230- 2749 Oct, Muscle spasms of both lower extremities M62.838 [place] [address] [place] [id number] [place] [address] 56406- 4631 Oct, Essential hypertension I10 ; Mixed hyperlipidemia E78.2 ; Pre-diabetes R73.03 and Other obesity due to excess calories E66.09 [place] [address] [place] [id number] [place] [address] 91309- 4749 Oct, Mixed hyperlipidemia E78.2 [place] [address] [place] [id number] [place] [address] 72565- 7287 Oct, Major depressive disorder, recurrent, moderate F33.1 [place] [address] [place] [id number] [place] [address] 68915- 2881 Oct, Essential hypertension I10 ; Mixed hyperlipidemia [...] index (BMI) of 34.0-34.[address] [facility] [address] [facility] [id number] [place] [address]- [address] Sep, IMMUNIZATIONS No Known Immunizations SOCIAL HISTORY Never Assessed REASON FOR VISIT Establish Care, would like to discuss her throat, only hurting on the right side -Rm PLAN OF CARE Activity Details Follow Up 3 Months, prn Reason:CHM/HTN VITAL SIGNS Height 66 in 2017-11-20 Weight 211.3 lbs 2017-11-20 Temperature 99.2 degrees Fahrenheit 2017-11-20 Heart Rate 78 bpm 2017-11-20 Respiratory Rate 20 2017-11-20 BMI 34.10 kg/m2 2017-11-20 Blood pressure systolic 122 mmHg 2017-11-20 Blood pressure diastolic 70 mmHg 2017-11-20 MEDICATIONS Medication Instructions Dosage Frequency Start Date End Date Duration Status Omeprazole Magnesium 20.6 (20 Base) MG Orally Once a day 1 capsule 24h Active Amoxicillin 500 mg Orally every 12 hrs 1 capsule 12h Oct, Nov, 10 days Active Sertraline HCl 25 MG Orally Once a day 1 tablet 24h Oct, 90 days Active BusPIRone HCl 5 mg Orally 2 times a day 1 tablet 12h 90 days Active Hydrochlorothiazide 12.5 MG Orally Once a day 1 tablet in the morning 24h Active Cyclobenzaprine HCl 10 MG Orally Three times a day 1 tablet as needed 8h Active Sertraline HCl 100 mg Orally Once a day 1 tablet 24h 90 days Active Flaxseed Oil 1000 MG Active Omeprazole 20 mg Orally Once a day 1 capsule 24h Oct, 90 days Active Benazepril HCl 20 MG Orally Once a day 1 tablet 24h Active VESIcare 5 MG Orally Once a day 1 tablet 24h Active Fenofibrate 160 MG Orally Once a day 1 tablet with food 24h Active RESULTS No Results PROCEDURES No Known procedures INSTRUCTIONS MEDICATIONS ADMINISTERED No Known Medications MEDICAL (GENERAL) HISTORY Type Description Date Medical History Hyperlipidemia Medical History Hypertension Medical History Depression Medical History Anxiety Medical History Acid Reflux Medical History Recurrent major depressive disorder, in full remission Surgical History Total Hysterectomy 2008
[2018-05-11 14:20] VITALS: BP 137/86
[2018-05-11 14:31] VITALS: BP 137/86
--- NOTE | 2018-05-12 15:11 | OPERATIVE REPORT ---
DATE OF SERVICE: 05/11/2018 PREOPERATIVE DIAGNOSES: 1. Gastritis. 2. Screening colonoscopy. POSTOPERATIVE DIAGNOSES: 1. Gastritis. 2. Colon polyp. 3. Diverticula. 4. Internal hemorrhoids. PROCEDURES: 1. EGD with biopsy. 2. Colonoscopy with snare polypectomy. 3. Colonoscopy with hot biopsy. SURGEON: Bertin Allen DO. CUSTOMER SERVICE COORDINATOR: Bobby Tilley, medical student level 3. SPECIMEN: 1. Biopsy from the antrum. 2. Cecal polyp. 3. Multiple biopsies from the rectum. BLOOD LOSS: Scant. FLUIDS: Per anesthesia. POSTOPERATIVE CONDITION: Stable. INDICATION FOR PROCEDURE: The patient is a 52-year-old female who has been having some GERD and reflux type symptoms. She needed an EGD. She also is of age and needed a screening colonoscopy. FINDINGS: The patient had some inflammation in the stomach and then in the colon, she had a cecal polyp, one diverticula on the right side and then had some almost cobblestone appearance in the rectum and biopsies were done. PROCEDURE NOTE: After informed consent was obtained, the patient was brought to the endoscopy suite and placed in the left lateral decubitus position. She was administered IV sedation by the PAYROLL COORDINATOR who then monitored her vitals the entire time, heart rate, blood pressure and pulse ox, and the scope was inserted down the mouth into the esophagus and down into the stomach and the stomach, we saw some erythema in the antrum, pushed into the duodenum, this looked fine, pulled back in the antrum, took a biopsy and then retroflexed. I did not see any obvious pathology in the upper stomach, pulled back into the esophagus, took picture of the GE junction. There was a little bit of changes looked like just some mild reflux. Pulled the scope up. The rest of the esophagus looked normal and then pulled it out the mouth. Switched gloves and switched scopes and went down below, placed the camera and then pushed all the way to about 100 cm, able to get to the cecum, took a picture of the appendiceal orifice, noted diverticula in the cecal area and then also saw a polyp. Elected to do a snare polypectomy to remove this polyp, removed it, sent this to pathology. The polyp went to pathology in two pieces even though snared it as one, then slowly withdrew the scope insufflating to look circumferentially at the hill looking at the cecum up the ascending colon to the hepatic flexure, then down the transverse colon, splenic flexure, into the descending colon down into the sigmoid and finally into the rectum, retroflexed the rectal vault, saw some minimal internal hemorrhoids and also saw some cobblestone appearance, elected to do some biopsies at the 3 o'clock, 12 o'clock and 9 o'clock positions in the rectum. These were all sent to pathology. The patient tolerated the procedure well. She was recovered in endoscopy suite. Job ID: [id number] DocumentID: [id number] Dictated Date: 05/12/2018 10:30:10 Customer Experience Retail Clerk Date: 05/12/2018 15:10:01 Dictated By: DO BELLE CASAS
== END 2018-05-11 14:25 | disposition home or self-care (01) ==
LOC: ENDO 10:58
PROVIDERS: ATTEND Surgery
DX: Z12.11 Encounter for screening for malignant neoplasm of colon (principal); K63.5 Polyp of colon; K29.50 Unspecified chronic gastritis without bleeding; K57.30 Diverticulosis of large intestine without perforation or abscess without bleeding; K64.8 Other hemorrhoids; E11.9 Type 2 diabetes mellitus without complications; I10 Essential (primary) hypertension; J30.9 Allergic rhinitis, unspecified; Z79.84 Long term (current) use of oral hypoglycemic drugs; Z79.899 Other long term (current) drug therapy
CPT/HCPCS: 82962; 88305; 88342

== ENCOUNTER 2018-06-16 13:57 | Outpatient (RCR) | payer BC | END 2018-09-14 | disposition home or self-care (01) | LOC: LAB 13:57 | PROVIDERS: ATTEND Surgery | DX: Z09 Encounter for follow-up examination after completed treatment for conditions other than malignant neoplasm (principal); Z87.19 Personal history of other diseases of the digestive system | CPT/HCPCS: 36415; 87338 ==

== ENCOUNTER → 2018-11-27 | Outpatient (CLI) | payer BC | LOC: RAD 08:55 | PROVIDERS: ATTEND Nurse Practitioner Family | DX: Z12.31 Encounter for screening mammogram for malignant neoplasm of breast (principal) | CPT/HCPCS: 77067 ==

== ENCOUNTER → 2020-03-20 | Outpatient (CLI) | payer OTHER ==
[~2020-03-20] MED LIST changes: +ACHD5005 PO; +DOCU-143 PO; +IBUP-844 PO; -OMEP20CA12 PO; +OMEP20CA18 PO; +PANT20TA3 PO
--- NOTE | 2020-03-20 11:24 | Diagnostic Imaging Report ---
INDICATION: Routine screening. Comparison is made with prior mammogram from 11/27/2018. 2-D and 3-D bilateral screening mammography was performed with CAD. Scattered fibroglandular densities are identified bilaterally. Occasional benign calcifications are noted in both breasts. No dominant mass or malignant appearing microcalcifications are seen. Axillae are unremarkable. IMPRESSION: BI-RADS Category 2 No mammographic features suspicious for malignancy are identified. ACR BI-RADS Category 2: Benign findings. Result letter will be mailed to the patient. Note: At least 10% of breast cancer is not imaged by mammography. Dictated by: Dictated on workstation # [id number]
== END ==
LOC: RAD 09:09
PROVIDERS: ATTEND Nurse Practitioner Family
DX: Z12.31 Encounter for screening mammogram for malignant neoplasm of breast (principal)
CPT/HCPCS: 77063; 77067